=== PATIENT | female | born 1995 | race Caucasian/White ===

== ENCOUNTER 2023-10-22 17:12 | Emergency (ER) | payer SELFPAY ==
[~2023-10-22 17:12] MED LIST: GASTROGRAFIN 30 ML BOT ONE; Iopamidol-370 76% 500 ML MDV (1 ML CHARGE) ONE
[2023-10-22 18:53] LABS: #Basophils 0.1 thou/uL (0.0-0.2); #Eosinphils 0.2 thou/uL (0.0-0.7); #Monocytes 0.5 thou/uL (0.11-0.59); %Basophils 0.9 % (0.0-1.0); %Eosinophils 2.3 % (0.0-10.0); %Lymphocytes 23.9 % (21.0-51.0); %Monocytes 6.3 % (0.0-10.0); %Neutrophils 66.3 % (42.0-75.0); Hematocrit 43.5 % (36.0-47.0); Hemoglobin 14.7 g/dL (12.0-16.0); Mean Corpuscular HGB CONC 33.8 g/dL (32.0-36.0); Mean Corpuscular Hemoglobin 32.9 pg (27.0-31.0); Mean Corpuscular Volume 97.3 fl (78.0-98.0); Mean Platelet Volume 11.4 fL (7.4-10.4); Platelet Count 261 10x3/uL (130-400); RBC Distribution Width 12.1 % (11.5-14.5); Red Blood Cell (RBC) Count 4.47 mill/uL (4.20-5.40); White Blood Cell (WBC) Count 7.5 10x3/uL (4.8-10.8)
[2023-10-22 18:54] LABS: ALT (SGPT) 17 U/L (8-55); AST (SGOT) 21 U/L (5-34); Albumin 4.9 g/dL (3.5-5.0); Alkaline Phosphatase 71 U/L (40-110); Anion Gap 16 mmol/L (10-20); BUN (Urea Nitrogen) 10 mg/dL (7.0-18.7); Bilirubin, Total 0.4 mg/dL (0.2-1.2); Calc. Creatinine Clearance 0 mL/min (70-130); Calcium 10.2 mg/dL (7.8-10.44); Carbon Dioxide 22 mmol/L (22-29); Chloride 105 mmol/L (98-107); Estimated GFR 80; Globulin 3.8 g/dL (2.4-3.5); Glucose 83 mg/dL (70-105); Potassium 4.1 mmol/L (3.5-5.1); Protein, Total 8.7 g/dL (6.0-8.3); Sodium 139 mmol/L (136-145)
[2023-10-22 19:23] LABS: BHCG - Serum Negative (NEGATIVE); Pregs Control Background? CLEAR/WHITE (CLR/WHITE); Pregs Control Bar Appear? YES (CONTROL BAR)
[2023-10-22] MEDS ORDERED: diphenhydrAMINE 50 MG/ML VIAL ONE (20:23)
[2023-10-22] MEDS ORDERED: methylPREDNISolone Sod Succ/PF 125 MG/2 ML VIAL ONE (20:23)
[2023-10-22] MEDS ORDERED: Famotidine/PF 20 mg/2ml Vial ONE (20:24)
== END 2023-10-22 23:59 | disposition home or self-care (01) ==
LOC: ERS 17:12
DX: R13.10 Dysphagia, unspecified (principal); I10 Essential (primary) hypertension; F17.210 Nicotine dependence, cigarettes, uncomplicated
CPT/HCPCS: 36415; 71260; 80053; 84443; 84703; 85025; 96374; 96375; J1200; J2930; Q9963; Q9967; S0028